=== PATIENT | male | born 1970 | race Two or more races ===

== ENCOUNTER 2021-02-08 10:49 | Emergency (ER) | payer MEDICAID, OTHER ==
[~2021-02-08] VITALS: Ht 180.3 cm; Wt 128.0 kg
[2021-02-08 11:31] VITALS: BP 133/73
[2021-02-08] MEDS ORDERED: CEPH-585 PO (11:41)
[2021-02-08] MEDS ORDERED: SULF1TAB49 PO (11:41)
[2021-02-08] MEDS ORDERED: LIDOcaine 1% W/epiNEPHrine 1:200,000 10ml vial IJ ONE (11:45)
== END 2021-02-08 13:25 | disposition home or self-care (01) ==
LOC: ER 10:50
DX: L02.416 Cutaneous abscess of left lower limb (principal); Z79.2 Long term (current) use of antibiotics; Z79.899 Other long term (current) drug therapy; Z72.89 Other problems related to lifestyle
CPT/HCPCS: 10061; 99283